=== PATIENT | female | born 1960 | race Two or more races ===

== ENCOUNTER 2022-03-21 14:21 | Outpatient (REF) | payer OTHER, SELFPAY ==
--- NOTE | ~2022-03-21 | US_ITS ---
EXAMINATION: US VENOUS WITH DOPPLER UPPER EXTREMITY, RIGHT CLINICAL INFORMATION: Right arm COMPARISON: None TECHNIQUE: Ultrasound of the upper extremity is performed using compression sonography and color and pulse Doppler flow with assessment of augmentation of flow. There is also imaging and Doppler assessment of the jugular and subclavian veins. Spectral analysis with color-flow imaging is performed. FINDINGS: Respiratory variation, normal compression, and augmented flow are noted throughout the upper extremity including the axillary, brachial, cubital, and radial and ulnar veins. There is normal flow in the internal jugular and subclavian veins. There is no visible deep or superficial thrombophlebitis. If the patient's symptoms progress, a followup ultrasound in 5 -7 days might be of value to exclude proximal propagation from a nonvisualized distal arm vein. US/US venous duplex UE RT IMPRESSION: No DVT demonstrated in the right arm
--- NOTE | ~2022-03-21 | XR_ITS ---
EXAMINATION: RIGHT HUMERUS AND FOREARM X-RAYS CLINICAL INFORMATION: Pain COMPARISON: None TECHNIQUE: 2 views of the right forearm and 2 views of the right humerus FINDINGS: Right forearm: Bone alignment is normal. No fracture or dislocation is seen. The joint spaces are normal. Soft tissues are normal. Right humerus: Bone alignment is normal. No fracture or dislocation is seen. 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 Joint spaces are otherwise normal. Soft tissues are normal. XR/XR forearm RT 2V IMPRESSION: Right forearm: Unremarkable exam. Right humerus: Mild arthritis at the acromioclavicular joint. Otherwise unremarkable exam.
--- NOTE | ~2022-03-21 | XR_ITS ---
EXAMINATION: RIGHT HUMERUS AND FOREARM X-RAYS CLINICAL INFORMATION: Pain COMPARISON: None TECHNIQUE: 2 views of the right forearm and 2 views of the right humerus FINDINGS: Right forearm: Bone alignment is normal. No fracture or dislocation is seen. The joint spaces are normal. Soft tissues are normal. Right humerus: Bone alignment is normal. No fracture or dislocation is seen. 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 Joint spaces are otherwise normal. Soft tissues are normal. XR/XR humerus RT IMPRESSION: Right forearm: Unremarkable exam. Right humerus: Mild arthritis at the acromioclavicular joint. Otherwise unremarkable exam.
== END 2022-03-21 14:22 | disposition home or self-care (01) ==
LOC: HO.US 14:21
PROVIDERS: Absent Provider Nurse Practitioner Family; PCP Nurse Practitioner Family; Visit Provider Emergency Medicine
DX: M79.601 Pain in right arm (principal); R60.0 Localized edema
CPT/HCPCS: 73060; 73090; 93971